=== PATIENT | female | born 1955 | race Two or more races ===

== ENCOUNTER → 2017-05-17 | Outpatient (CLI) | payer BC | LOC: CIMAGING 14:20 | PROVIDERS: ATTEND Family Medicine | DX: Z12.31 Encounter for screening mammogram for malignant neoplasm of breast (principal) ==

== ENCOUNTER → 2018-05-28 | Outpatient (CLI) | payer BC | LOC: CIMAGING 14:25 | PROVIDERS: ATTEND Family Medicine | DX: Z12.31 Encounter for screening mammogram for malignant neoplasm of breast (principal) ==